=== PATIENT | female | born 1985 | race Caucasian/White ===

== ENCOUNTER 2023-12-17 16:25 | Emergency (ER) | payer OTHER ==
--- NOTE | 2023-12-17 16:39 | ED ---
General Adult HPI - General Source: patient, EMS, RN notes reviewed Mode of arrival: EMS Limitations: altered mental status <Roman Drew - Last Filed: 12/18/23 00:22> <Nasir Robledo - Last Filed: 12/18/23 03:49> - General Chief complaint: Psychiatric Symptoms Stated complaint: SI Time Seen by Provider: 12/17/23 16:38 - History of Present Illness Initial comments: 58-year-old female presenting to the ED with complaints of suicidal ideation. Per petition, patient has reportedly stated that she is suicidal with plans to either overdose on medications or jump off a bridge. Patient previously IV heroin user. No fever. Denies chest pain. Denies rash. Does note some nausea. No changes in bowel or bladder habits. No other complaints at this time. (Roman Drew) - Related Data Home Medications Medication Instructions Recorded Confirmed No Known Home Medications 12/17/23 12/17/23 Allergies Allergy/AdvReac Type Severity Reaction Status Date / Time aureliano Allergy Anaphylaxis Verified 12/17/23 18:07 aripiprazole [From Abilify] AdvReac Restless Verified 12/17/23 18:07 Legs lamotrigine [From Lamictal] AdvReac Restless Verified 12/17/23 18:07 Legs NSAIDS (Non-Steroidal AdvReac Nausea & Verified 12/17/23 18:07 Anti-Inflamma Vomiting & Diarrhea/kidney issues Review of Systems ROS Other: All systems not noted in ROS Statement are negative. <Roman Drew - Last Filed: 12/18/23 00:22> ROS Other: All systems not noted in ROS Statement are negative. <Nasir Robledo - Last Filed: 12/18/23 03:49> ROS Statement: Those systems with pertinent positive or pertinent negative responses have been documented in the HPI. Past Medical History Past Medical History: No Reported History History of Any Multi-Drug Resistant Organisms: None Reported Past Surgical History: No Surgical Hx Reported Past Psychological History: No Psychological Hx Reported Smoking Status: Current every day smoker Past Alcohol Use History: Unable to Obtain Past Drug Use History: Unable to Obtain <Roman Drew - Last Filed: 12/18/23 00:22> General Exam Limitations: altered mental status General appearance: alert, in no apparent distress Eye exam: Present: normal appearance Neck exam: Present: normal inspection Respiratory exam: Present: normal lung sounds bilaterally Cardiovascular Exam: Present: regular rate, normal rhythm, normal heart sounds. Absent: systolic murmur, diastolic murmur GI/Abdominal exam: Present: soft (No significant tenderness to palpation. No rebound guarding or rigidity. No CVA tenderness to percussion bilaterally.) Back exam: Present: normal inspection Skin exam: Present: warm, dry, other (No Janeway lesions or Osler nodes.) <Roman Drew - Last Filed: 12/18/23 00:22> - General Exam Comments Initial Comments: Visual Physical Exam Vital signs reviewed General: Well-appearing, nontoxic, no acute distress. Head: Normocephalic, atraumatic Eyes: PERRLA, EOMI ENT: Airway patent Chest: Nonlabored breathing Skin: No visual rash, normal skin tone Neuro: Alert and oriented 3 Musculoskeletal: No gross abnormalities (Roman Drew) Course Vital Signs 12/17/23 12/17/23 16:30 22:00 Temperature 97.6 F Pulse Rate 84 69 Respiratory 19 18 Rate Blood Pressure 131/76 144/91 O2 Sat by Pulse 98 100 Oximetry Medical Decision Making <Roman Drew - Last Filed: 12/18/23 00:22> <Nasir Robledo - Last Filed: 12/18/23 03:49> - Medical Decision Making Quicknote portion performed. Signed Roman Drew PA-C Was pt. sent in by a medical professional or institution ([facility], PHYSICIAN PEDIATRICIAN, urgent care, hospital, or retirement...) When possible be specific @ -No Did you speak to anyone other than the patient for history (EMS, parent, family, police, friend...)? What history was obtained from this source @ -No Did you review nursing and triage notes (agree or disagree)? Why? @ -I reviewed and agree with nursing and triage notes Were old charts reviewed (outside hosp., previous admission, EMS record, old EKG, old radiological studies, urgent care reports/EKG's, retirement records)? Report findings @ -No old charts were reviewed Differential Diagnosis (chest pain, altered mental status, abdominal pain women, abdominal pain men, vaginal bleeding, weakness, fever, dyspnea, syncope, headache, dizziness, GI bleed, back pain, seizure, CVA, palpatations, mental health, musculoskeletal)? @ -Differential Mental Health Depression, anxiety, bipolar, psychosis, schizophrenia, borderline personality, situational depression, adjustment disorder, behavioral disorder, brain tumor, malingering, substance abuse, encephalopathy, medication reaction, dementia, hypothyroidism, degenerative neurologic disorder, lupus.... This is not meant to be all-inclusive list EKG interpreted by me (3pts min.). @ -None X-rays interpreted by me (1pt min.). @ -None done CT interpreted by me (1pt min.). @ -None done U/S interpreted by me (1pt. min.). @ -None done What testing was considered but not performed or refused? (CT, X-rays, U/S, labs)? Why? @ -None What meds were considered but not given or refused? Why? @ -None Did you discuss the management of the patient with other professionals (professionals i.e. , PA, PHYSICIAN PEDIATRICIAN, lab, RT, psych nurse, rn social services, pet adoption counselor, teacher, sanitation officer, bilingual case manager)? Give summary @ -No Was smoking cessation discussed for >3mins.? @ -No Was critical care preformed (if so, how long)? @ -No Were there social determinants of health that impacted care today? How? (Homelessness, low income, unemployed, alcoholism, drug addiction, transportation, low edu. Level, literacy, decrease access to med. care, fpc, rehab)? @ -No Was there de-escalation of care discussed even if they declined (Discuss DNR or withdrawal of care, Hospice)? DNR status @ -No What co-morbidities impacted this encounter? (DM, HTN, Smoking, COPD, CAD, Cancer, CVA, ARF, Chemo, Hep., AIDS, mental health diagnosis, sleep apnea, morbid obesity)? @ -None Was patient admitted / discharged? Hospital course, mention meds given and route, prescriptions, significant lab abnormalities, going to OR and other pertinent info. @ -Pending Patient presenting to the ED with complaints of suicidal ideations. At this time patient is medically cleared. Disposition pending psychiatric evaluation. Case signed out to my attending physician, Dr. Robledo, for further disposition. (Roman Drew) Patient medically cleared by prior physician. Pending EPS evaluation. EPS cath evaluate the patient interpret determined that she does not meet inpatient criteria. Patient be safety planned and discharged home. Patient in agreement this plan. Diagnosis/symptom? @ -Encounter for psychiatric evaluation Acute, or Chronic, or Acute on Chronic? @ -Acute Uncomplicated (without systemic symptoms) or Complicated (systemic symptoms)? @ -Uncomplicated Side effects of treatment? @ -None Exacerbation, Progression, or Severe Exacerbation] @ -No Poses a threat to life or bodily function? @ -Unlikely (Nasir Robledo) - Lab Data Lab Results 12/17/23 Range/Units 18:38 Urine Opiates Screen Not Detected (NotDetected) Ur Oxycodone Screen Not Detected (NotDetected) Urine Methadone Screen Not Detected (NotDetected) Ur Barbiturates Screen Not Detected (NotDetected) U Tricyclic Antidepress Not Detected (NotDetected) Ur Phencyclidine Scrn Not Detected (NotDetected) Ur Amphetamines Screen Detected H (NotDetected) U Methamphetamines Scrn Detected H (NotDetected) U Benzodiazepines Scrn Not Detected (NotDetected) Urine Cocaine Screen Detected H (NotDetected) U Marijuana (THC) Screen Detected H (NotDetected) Disposition <Roman Drew - Last Filed: 12/18/23 00:22> Is patient prescribed a controlled substance at d/c from ED?: No <Nasir Robledo - Last Filed: 12/18/23 03:49> Clinical Impression: Encounter for psychiatric assessment Disposition: HOME SELF-CARE Condition: Good Additional Instructions: follow safety plan Referrals: Nonstaff,Physician [Primary Care Provider] - 1-2 days
[2023-12-17 16:54] VITALS: TEMP 97.6
[2023-12-17] MEDS: ONDANSETRON ODT 4 MG TAB PO STA (17:29)
[2023-12-17 19:08] LABS: Amphetamine Screen,Urine Detected (NotDetected); Barbiturate Screen,Urine Not Detected (NotDetected); Benzodiazepines Screen,Urine Not Detected (NotDetected); Cocaine Screen,Urine Detected (NotDetected); Methadone Screen, Urine Not Detected (NotDetected); Opiate Screen,Urine Not Detected (NotDetected); Oxycodone Screen, Urine Not Detected (NotDetected); Phencyclidine Screen,Urine Not Detected (NotDetected); Tricyclic Antidepressant,Urine Not Detected (NotDetected); Urn Cannabinoid Scrn Detected (NotDetected)
[2023-12-17 22:40] VITALS: RESP 18
[2023-12-18 07:18] VITALS: BP 148/97; PULSE 92
== END 2023-12-18 12:01 | disposition home or self-care (01) ==
LOC: EC 16:25
DX: Z00.8 Encounter for other general examination (principal); F17.200 Nicotine dependence, unspecified, uncomplicated; Z91.018 Allergy to other foods; Z88.6 Allergy status to analgesic agent; Z88.8 Allergy status to other drugs, medicaments and biological substances
CPT/HCPCS: 80306; 82075; 99285